=== PATIENT | female | born 1995 | race African-American/Black ===

== ENCOUNTER 2023-11-20 23:52 | Emergency (ER) | payer MEDICAID ==
[~2023-11-20 23:52] MED LIST: NO MEDICATIONS REPORTED
[2023-11-20 23:54] VITALS: PULSE 103
== END 2023-11-21 00:26 | disposition left against medical advice (07) ==
LOC: ER 11-21 00:13
DX: S40.862A Insect bite (nonvenomous) of left upper arm, initial encounter (principal); Z53.21 Procedure and treatment not carried out due to patient leaving prior to being seen by health care provider; W57.XXXA Bitten or stung by nonvenomous insect and other nonvenomous arthropods, initial encounter; Y93.89 Activity, other specified; Y92.89 Other specified places as the place of occurrence of the external cause; Y99.8 Other external cause status
CPT/HCPCS: 99281